=== PATIENT | female | born 1975 | race Two or more races ===

== ENCOUNTER 2021-03-15 10:58 | Inpatient (IN) | payer MEDICAID, OTHER ==
[~2021-03-15] VITALS: Ht 162.6 cm; Wt 64.0 kg
[2021-03-15 11:25] LABS: BASOPHILS % (AUTO) 0.8 % (0.0-2.0); HEMATOCRIT 38.8 % (36-46); HEMOGLOBIN 12.7 g/dL (12.0-16.0); LYMPHOCYTES # (AUTO) 1.3 K/uL (1.0-4.8); LYMPHOCYTES % (AUTO) 26.7 % (22.0-44.0); MEAN CORPUSCULAR HGB CONC 32.7 G/dL (31.0-37.0); MEAN CORPUSCULAR VOLUME 86 fL (80-100); MONOCYTES # (AUTO) 0.4 K/uL (0.1-1.0); MONOCYTES % (AUTO) 7.4 % (2.0-9.0); NEUTROPHILS # (AUTO) 2.9 K/uL (1.8-7.7); NEUTROPHILS % (AUTO) 60.1 % (40.0-70.0); PLATELET COUNT (AUTO) 252 K/uL (150-450); RED BLOOD CELL COUNT(AUTO) 4.53 MIL/uL (4.00-5.20); RED CELL DISTRIBUTION WIDTH 13.1 % (11.5-14.5)
[2021-03-15 11:37] LABS: ANION GAP 6 mmol/L (8-16); CALCIUM, TOTAL 9.2 mg/dL (8.8-10.5); CARBON DIOXIDE 29 mmol/L (22-29); CHLORIDE 99 mmol/L (98-107); CREATININE 0.68 mg/dL (0.60-1.30); GLOMERULAR FILTR. RATE CALC > 60 mL/min (>60); GLUCOSE,RANDOM 338 mg/dL (70-110); POTASSIUM 4.3 mmol/L (3.5-5.1); SODIUM SERUM 134 mmol/L (136-145); UREA NITROGEN, BLOOD 15 mg/dL (7-18)
[2021-03-15 11:51] LABS: ALANINE AMINOTRANSFERASE 65 U/L (12-78); ALBUMIN 3.9 g/dL (3.4-5.0); ALKALINE PHOSPHATASE 103 U/L (46-116); ASPARTATE AMINOTRANSFERASE 31 U/L (15-37); BILIRUBIN,TOTAL 0.3 mg/dL (0.1-1.0); HCG,QUANTITATIVE 1 mIU/mL (0-6); THYROID STIMULATING HORMONE 1.12 uIU/mL (0.36-3.74); TOTAL PROTEIN, SERUM 7.6 g/dL (6.4-8.2)
[2021-03-15 11:52] LABS: ACETAMINOPHEN < 2 mcg/mL (10-30)
[2021-03-15 12:01] LABS: SALICYLATE 0.5 mg/dL (2.8-20.0)
[2021-03-15 12:50] LABS: AMPHET/METH SCREEN,URINE NEGATIVE (NEGATIVE); BARBITURATE SCREEN, URINE NEGATIVE (NEGATIVE); BENZODIAZEPINES SCREEN,URINE NEGATIVE (NEGATIVE); CANNABINOID SCREEN,URINE NEGATIVE (NEGATIVE); COCAINE SCREEN,URINE NEGATIVE (NEGATIVE); METHADONE SCREEN, URINE NEGATIVE (NEGATIVE); OPIATE SCREEN,URINE NEGATIVE (NEGATIVE)
[2021-03-15 12:51] LABS: PHENCYCLIDINE SCREEN,URINE NEGATIVE (NEGATIVE)
[2021-03-15 14:24] LABS: COVID AG,FIA SOURCE NASOPHARYNGEAL
[2021-03-15 15:20] LABS: GLUCOSE,POINT OF CARE 143 MG/DL (70-110)
[2021-03-15] MEDS ORDERED: LORazepam 2 MG TABLET PO PRN (20:30)
[2021-03-15] MEDS ORDERED: ZOLPIDEM TARTRATE 10 MG TABLET PO PRN (20:30)
[2021-03-15 21:31] LABS: GLUCOMETER DEV NAME(LOC) BV2S.; GLUCOSE,POINT OF CARE 288 MG/DL (70-110)
[2021-03-15 21:45] VITALS: BP 145/90
[2021-03-15] MEDS ORDERED: METF-960 PO (22:04)
[2021-03-15] MEDS ORDERED: LISI-894 PO (22:04)
[2021-03-15] MEDS ORDERED: GLIP5 PO (22:04)
[2021-03-15] MEDS ORDERED: MIRT-89 PO (22:06)
[2021-03-15] MEDS: MetFORMIN HCL 500 MG TABLET PO SCH (22:38)
[2021-03-16 01:08] VITALS: BP 141/85
[2021-03-16] MEDS: MetFORMIN HCL 500 MG TABLET PO SCH ×2 (06:50→16:24)
[2021-03-16] MEDS ORDERED: LOPERAMIDE HCL 2 MG CAPSULE PO PRN (07:15)
[2021-03-16] MEDS ORDERED: ACETAMINOPHEN 325 MG TABLET PO PRN (07:15)
[2021-03-16] MEDS ORDERED: ALBUTEROL SULFATE HFA 90 MCG/PUFF 8 GM INHALER IH PRN (07:15)
[2021-03-16] MEDS ORDERED: PETROLATUM,WHITE 28 GM JELLY TP PRN (07:15)
[2021-03-16] MEDS ORDERED: DOCUSATE SODIUM 100 MG CAPSULE PO PRN (07:15)
[2021-03-16] MEDS ORDERED: CloNIDine HCL 0.1 MG TABLET PO PRN (07:15)
[2021-03-16] MEDS ORDERED: NICOTINE 14 MG/24 HOUR PATCH TD PRN (07:15)
[2021-03-16] MEDS ORDERED: ONDANSETRON HCL 4 MG TABLET PO PRN (07:15)
[2021-03-16] MEDS ORDERED: GuaiFENesin/D-METHORPHAN [SUGAR-FREE] 200-20MG/10 ML SYRUP UDCUP PO PRN (07:15)
[2021-03-16] MEDS ORDERED: MAG HYDROX/AL HYDROX/SIMETH ES 30 ML SUSPENSION UDCUP PO PRN (07:15)
[2021-03-16] MEDS ORDERED: MAGNESIUM HYDROXIDE SUSPENSION 30 ML UDCUP PO PRN (07:15)
[2021-03-16 07:53] LABS: BASOPHILS % (AUTO) 0.8 % (0.0-2.0); EOSINOPHILS % (AUTO) 4.8 % (1.0-6.0); HEMATOCRIT 38.6 % (36-46); HEMOGLOBIN 12.7 g/dL (12.0-16.0); LYMPHOCYTES # (AUTO) 1.5 K/uL (1.0-4.8); LYMPHOCYTES % (AUTO) 27.4 % (22.0-44.0); MEAN CORPUSCULAR HEMOGLOBIN 27.8 pg (26.0-34.0); MEAN CORPUSCULAR HGB CONC 32.8 G/dL (31.0-37.0); MEAN CORPUSCULAR VOLUME 85 fL (80-100); MONOCYTES # (AUTO) 0.4 K/uL (0.1-1.0); NEUTROPHILS # (AUTO) 3.2 K/uL (1.8-7.7); PLATELET COUNT (AUTO) 253 K/uL (150-450); RED BLOOD CELL COUNT(AUTO) 4.56 MIL/uL (4.00-5.20); RED CELL DISTRIBUTION WIDTH 13.1 % (11.5-14.5)
[2021-03-16 08:08] VITALS: BP 145/84
[2021-03-16 08:14] LABS: HEMOGLOBIN A1C 11.1 % (3.8-5.6)
[2021-03-16 08:36] LABS: ALANINE AMINOTRANSFERASE 61 U/L (12-78); ALBUMIN 3.5 g/dL (3.4-5.0); ALKALINE PHOSPHATASE 79 U/L (46-116); ANION GAP 10 mmol/L (8-16); ASPARTATE AMINOTRANSFERASE 27 U/L (15-37); BILIRUBIN,TOTAL 0.3 mg/dL (0.1-1.0); CALCIUM, TOTAL 8.9 mg/dL (8.8-10.5); CARBON DIOXIDE 28 mmol/L (22-29); CHLORIDE 105 mmol/L (98-107); CHOLESTEROL 184 mg/dL (131-200); CREATININE 0.51 mg/dL (0.60-1.30); FREE T4 (FREE THYROXINE) 1.28 ng/dL (0.76-1.46); GLOMERULAR FILTR. RATE CALC > 60 mL/min (>60); GLUCOSE,RANDOM 174 mg/dL (70-110); HCG,QUANTITATIVE 1 mIU/mL (0-6); HDL CHOLESTEROL 37 mg/dL (40-60); LDL CHOL (CALC.) 130 mg/dL (0-130); POTASSIUM 3.7 mmol/L (3.5-5.1); SODIUM SERUM 143 mmol/L (136-145); THYROID STIMULATING HORMONE 0.71 uIU/mL (0.36-3.74); TRIGLYCERIDES 87 mg/dL (15-150); UREA NITROGEN, BLOOD 16 mg/dL (7-18)
[2021-03-16] MEDS: FLUoxetine HCL 20 MG CAPSULE PO SCH (09:30)
[2021-03-16] MEDS: LISINOPRIL 20 MG TABLET PO SCH (10:03)
[2021-03-16] MEDS ORDERED: INSU100I26 SQ (12:45)
[2021-03-16] MEDS ORDERED: GLUCAGON,HUMAN RECOMBINANT 1 MG VIAL IM PRN (12:45)
[2021-03-16] MEDS ORDERED: GABA-1181 PO (12:45)
[2021-03-16] MEDS: GlipiZIDE 5 MG TABLET PO SCH (16:24)
[2021-03-16] MEDS: INSULIN LISPRO 100 UNITS/ML SQ PRN ×2 (16:32→20:40)
[2021-03-16 16:45] LABS: GLUCOMETER DEV NAME(LOC) BV2S.; GLUCOSE,POINT OF CARE 347 MG/DL (70-110)
[2021-03-16 17:13] VITALS: BP 115/61
[2021-03-16] MEDS: INSULIN GLARGINE,HUM.REC.ANLOG 100 UNITS/ML SQ SCH (20:39)
[2021-03-16 21:18] LABS: GLUCOMETER DEV NAME(LOC) BV2S.; GLUCOSE,POINT OF CARE 180 MG/DL (70-110)
[2021-03-17 01:19] VITALS: BP 134/75
[2021-03-17] MEDS: GlipiZIDE 5 MG TABLET PO SCH ×2 (06:16→16:31)
[2021-03-17] MEDS: MetFORMIN HCL 500 MG TABLET PO SCH ×2 (06:16→16:31)
[2021-03-17 06:43] LABS: GLUCOMETER DEV NAME(LOC) BV2S.; GLUCOSE,POINT OF CARE 121 MG/DL (70-110)
[2021-03-17 08:33] VITALS: BP 119/83
[2021-03-17] MEDS: LISINOPRIL 20 MG TABLET PO SCH (08:58)
[2021-03-17] MEDS: FLUoxetine HCL 20 MG CAPSULE PO SCH (08:58)
[2021-03-17] MEDS: INSULIN LISPRO 100 UNITS/ML SQ PRN ×3 (11:33→20:51)
[2021-03-17 11:39] LABS: GLUCOMETER DEV NAME(LOC) BV2S.; GLUCOSE,POINT OF CARE 369 MG/DL (70-110)
[2021-03-17] MEDS: IBUPROFEN 400 MG TABLET PO PRN (13:46)
[2021-03-17 16:11] VITALS: BP 133/77
[2021-03-17 16:38] LABS: GLUCOMETER DEV NAME(LOC) BV2S.; GLUCOSE,POINT OF CARE 197 MG/DL (70-110)
[2021-03-17 20:33] LABS: GLUCOMETER DEV NAME(LOC) BV2S.; GLUCOSE,POINT OF CARE 210 MG/DL (70-110)
[2021-03-17] MEDS: INSULIN GLARGINE,HUM.REC.ANLOG 100 UNITS/ML SQ SCH (20:52)
[2021-03-18] MEDS: GlipiZIDE 5 MG TABLET PO SCH (06:00)
[2021-03-18] MEDS: MetFORMIN HCL 500 MG TABLET PO SCH (06:00)
[2021-03-18 06:39] VITALS: BP 109/69
[2021-03-18] MEDS: INSULIN LISPRO 100 UNITS/ML SQ PRN (06:47)
[2021-03-18 06:48] LABS: GLUCOMETER DEV NAME(LOC) BV2S.; GLUCOSE,POINT OF CARE 164 MG/DL (70-110)
[2021-03-18] MEDS: IBUPROFEN 400 MG TABLET PO PRN ×2 (07:03→11:13)
[2021-03-18 08:00] VITALS: BP 105/68
[2021-03-18] MEDS: LISINOPRIL 20 MG TABLET PO SCH (08:31)
[2021-03-18] MEDS: FLUoxetine HCL 20 MG CAPSULE PO SCH (08:31)
[2021-03-18] MEDS ORDERED: FLUO20CA36 PO (10:25)
[2021-03-18] MEDS ORDERED: INSLAN SQ (10:26)
[2021-03-18 11:06] LABS: GLUCOMETER DEV NAME(LOC) BV2S.; GLUCOSE,POINT OF CARE 291 MG/DL (70-110)
== END 2021-03-18 12:00 | disposition home or self-care (01) | DRG 754 ==
LOC: EMS 11:06 → B3A 15:16 → B2S 19:40
PROVIDERS: ADMIT Psychiatry & Neurology Child & Adolescent Psychiatry; ATTEND Psychiatry & Neurology Child & Adolescent Psychiatry
DX: F32.9 Major depressive disorder, single episode, unspecified (principal); R45.851 Suicidal ideations; E87.1 Hypo-osmolality and hyponatremia; Z91.14 Patient's other noncompliance with medication regimen; E11.65 Type 2 diabetes mellitus with hyperglycemia; F41.1 Generalized anxiety disorder; I10 Essential (primary) hypertension; K59.00 Constipation, unspecified; Z20.822 Contact with and (suspected) exposure to COVID-19; Z79.899 Other long term (current) drug therapy
CPT/HCPCS: 80053; 80061; 82962; 83036; 84439; 84443; 84702; 85025; 99285; G0480; G0481; J1815